=== PATIENT | male | born 1975 | race Hispanic/Latino ===

== ENCOUNTER 2017-07-21 19:46 | Emergency (ER) | payer OTHER ==
[~2017-07-21] VITALS: Ht 188 cm; Wt 104.5 kg
[2017-07-21 19:48] VITALS: BP 136/87; PULSE 80; RESP 15; O2SAT 96
--- NOTE | 2017-07-21 21:04 | ED.REPORT ---
HPI-General Illness Date of Service Jul 21, 2017 ED Provider: Michael Simpson MD Pt is a healthy 41 y/o male who presents to the ED c/o a right thumb laceration from an aluminum gasket while he was working on a car onset 15 minutes ago. He states that his pain is non-radiating and rates the severity as 1/10 that is exacerbated by movement. He has full range of motion and full sensation of his thumb. He denies any foreign bodies because it was a clean slice from the metal. He denies fever, SOB, numbness/tingling, focal weakness, cough, rash, abdominal pain, or any other symptoms. He denies having an updated tetanus shot. Nursing Notes Stated Complaint: CUT TO RIGHT HAND Chief Complaint: Extremity Trauma Nursing Notes Reviewed: Yes Allergies: Coded Allergies: No Known Allergies (Unverified , 07/21/17) General Time Seen by MD: 20:09 Chief Complaint Laceration (to R thumb) Hx Obtained From: Patient Arrived By: Walk-in Sudden in Onset?: Yes Onset Occurred: 1 - 15 minutes ago Caused by: Accidental Severity: Current: Pain level 1 out of 10 Severity: Maximum: Pain level 1 out of 10 Pertinent Negative: Pt denies other symptoms Recent Healthcare: No recent doctor visit, No recent hospitalization Similar Sx Previous: No Past Medical History Past Medical History Denies Past Surgical History Surgery for broken right metatarsals Smoking History Former Smoker Social History Alcohol Use: "Social" Drug Use: Denies drug use Other Social History: Good social support Ambulatory Status Independent Review of Systems Laceration to R thumb Full Review of Systems Constitutional: Denies: Fever Respiratory: Denies: Non-productive cough, Prod cough, clear, Shortness of breath Cardiovascular: Denies: Chest pain GI: Denies: Abdominal pain Male: Denies Dysuria Musculoskeletal: Denies: Back pain Skin: Denies Rash Allergy / Immune: Denies: Itching Neurologic: Denies: Focal weakness, Numbness Complete sys rev & neg: except as marked. Physical Exam General: Well appearing, no acute distress HEENT: mucous membranes moist Pulm: Speaking comfortably with unlabored respirations, no respiratory distress Card: Regular rate, good peripheral perfusion Abd: Soft, nontender, nondistended Skin: Warm and dry, no rashes or pallor appreciated Psych: Appropriate mood and affect. Behavior appears normal. Neuro: AOx3, strength and sensation to light touch grossly intact throughout. Extremities: Moving all extremities, no peripheral edema appreciated. Two cm laceration to ulnar aspect of right thumb at the interphalangeal joint, superficial, no nerve or tendon involvement. Vital Signs Vital Signs Date Time Temp Pulse Resp B/P Pulse Ox O2 Delivery O2 Flow Rate FiO2 07/21/17 23:15 36.6 61 16 126/86 97 Room Air 07/21/17 19:48 37.1 80 15 136/87 96 Room Air Initial VS: Reviewed Procedures Laceration Management Time: 22:30 Procedure Performed by: ED physician Consent / Setup / Site Prep: Informed consent provided, Consent from patient , Time-out performed, Hand hygiene observed, Stand sterile technique Location of Wound: ulnar aspect of right thumb at the interphalangeal joint Wound Length: 2 cm Local Anesthesia: Lidocaine 1% Digital Block: No Wound Preparation: Hibiclens - Chlorhexidine, Normal saline Debridement: None Irrigation: Copious Foreign Body Explore / Removal: Explored for foreign body Repair Skin: ___ O (6), Nylon # Sutures - Skin: 3 Suture Technique: Simple (interrupted) Post-Procedure / Complications: Antibiotic oint applied, Dressing applied, No complications, Condition improved, Tolerated procedure well, Patient stable Re-Eval/Medical Decision Med Decision/Clinical Course 41-year-old male presenting to the ED for a laceration to his thumb around the interphalangeal joint. The laceration is superficial with no evidence of deeper involvement, including no vascular or nerve involvement. He has a reassuring neurovascular exam, including ability to abduct, adduct, and oppose his thumb without difficulty, with intact sensation. Laceration repaired as per above. Tetanus updated. Plan discharge home with very careful return precautions, PCP follow-up in the next several days. Patient agreeable to the plan as stated, no further questions. Source of Hx: Old records Time of Eval: 22:30 Re-Evaluation/Progress Note: Pt rechecked. Performed laceration management procedure. Discussed plan for discharge. Patient understands and agrees with plan. F/U instructions and RTER warnings given. All questions addressed at this time Counseled Regarding: Diagnosis, Need for follow-up, When/why to return to ED Discharge & Departure Primary Impression: Laceration of thumb Encounter type: initial encounter Laterality: right Qualified Code: S61.011A - Laceration without foreign body of right thumb without damage to nail , initial encounter Disposition: Home Discharge Condition All VS Reviewed: Yes Condition: Stable Patient Instructions: Care For Your Stitches (ED) Additional Instructions: You have been seen in the emergency department for evaluation of a laceration to your thumb. It does not appear to involve any nerves or serious blood vessels at this time. It is important that you keep your stitches clean and dry ; please see the attached instructions for more information. Follow up with your regular doctor in the next 7-10 days to have your stitches removed. Please return to the emergency department immediately if you develop any numbness, tingling, decreased movement of the thumb, drainage, increasing redness, fever, or if there is anything else of concern to you. Referrals: [facility] (PCP) [facility] Scribe Attestation Portions of this note were transcribed by Nicky Zaragoza. I, Dr. Simpson, personally performed the history, physical exam and medical decision-making; I reviewed and confirmed the accuracy of the information in the transcribed note. copies to: [facility] Michael Simpson MD Jul 21, 2017 21:04 Nicky Zaragoza Jul 21, 2017 21:14
[2017-07-21] MEDS ORDERED: Lidocaine 1% 50 mL Inj NERVEBLOCK ONE (21:35)
[2017-07-21] MEDS ORDERED: TdaP Vaccine 0.5 mL Inj IM ONE (21:35)
[2017-07-21 23:15] VITALS: BP 126/86; PULSE 61; RESP 16; O2SAT 97
== END 2017-07-21 23:44 | disposition home or self-care (01) ==
LOC: SED 19:46
DX: S61.011A Laceration without foreign body of right thumb without damage to nail, initial encounter (principal); W26.8XXA Contact with other sharp object(s), not elsewhere classified, initial encounter; Y93.89 Activity, other specified; Y99.8 Other external cause status; Y92.008 Other place in unspecified non-institutional (private) residence as the place of occurrence of the external cause; Z87.891 Personal history of nicotine dependence; Z23 Encounter for immunization